=== PATIENT | female | born 1985 | race Hispanic/Latino ===

== ENCOUNTER 2018-07-30 15:52 | Emergency (ER) | payer OTHER ==
[2018-07-30] MEDS ORDERED: HYDROXYZINE HCL 25 MG TABLET ONE (16:43)
[2018-07-30] MEDS ORDERED: IBUPROFEN 400 MG TABLET ONE (16:44)
== END 2018-07-30 17:43 | disposition home or self-care (01) ==
LOC: EDH 15:52
DX: S00.83XA Contusion of other part of head, initial encounter (principal); S40.022A Contusion of left upper arm, initial encounter; S40.021A Contusion of right upper arm, initial encounter; F41.1 Generalized anxiety disorder; Z88.6 Allergy status to analgesic agent; Y04.0XXA Assault by unarmed brawl or fight, initial encounter; Y93.89 Activity, other specified; Y92.89 Other specified places as the place of occurrence of the external cause; Y99.8 Other external cause status
CPT/HCPCS: 81025

== ENCOUNTER 2019-06-08 23:47 | Emergency (ER) | payer SELFPAY ==
[2019-06-09 00:18] LABS: BASOPHILS % (AUTO) 1.1 % (0.0-5.0); HEMATOCRIT 32.3 % (36-48); LYMPHOCYTES % (AUTO) 37.9 % (21.0-51.0); MEAN CORPUSCULAR HEMOGLOBIN 24.7 pg (27.0-33.0); MEAN CORPUSCULAR HGB CONC 32.2 g/dL (32.0-36.0); MEAN CORPUSCULAR VOLUME 76.5 fL (79-99); NUCLEATED RED BLOOD CELLS 0.1 % (0.0-0.19); PLATELET COUNT (AUTO) 291 K/uL (130-400); RED BLOOD CELL COUNT(AUTO) 4.22 MIL/uL (4.00-5.50); RED CELL DISTRIBUTION WIDTH 16.5 % (11.0-15.5); WHITE BLOOD COUNT (AUTO) 8.7 K/uL (4.8-10.8)
[2019-06-09 00:27] LABS: CREATININE 0.8 mg/dL (0.5-1.5); POTASSIUM 3.5 mmol/L (3.5-5.1)
[2019-06-09 00:28] LABS: INR 0.91 (0.85-1.15); PARTIAL THROMBOPLASTIN TIME 31.1 SEC (26.3-35.5); PROTHROMBIN TIME 9.6 SEC (9.6-11.6)
[2019-06-09 00:31] LABS: ALBUMIN 3.5 g/dL (3.5-5.0); BILIRUBIN,TOTAL 0.2 mg/dL (0.2-1.0); TOTAL PROTEIN, SERUM 7.7 g/dL (6.0-8.3)
[2019-06-09] MEDS ORDERED: KETOROLAC TROMETHAMINE 30MG/ML ONE (01:03)
== END 2019-06-09 01:18 | disposition home or self-care (01) ==
LOC: EDH 23:47
DX: R07.89 Other chest pain (principal); R06.02 Shortness of breath; R05 Cough; F41.9 Anxiety disorder, unspecified; F32.9 Major depressive disorder, single episode, unspecified; F12.10 Cannabis abuse, uncomplicated; Z72.0 Tobacco use; Z88.5 Allergy status to narcotic agent
CPT/HCPCS: 36415; 71045; 80053; 82550; 83690; 84484; 85025; 85610; 85730; 93005; 96374; 99285; J1885